=== PATIENT | female | born 1975 | race Caucasian/White ===

== ENCOUNTER → 2020-09-01 09:14 | Outpatient (BNVA) | payer SELFPAY | PROVIDERS: Family Provider Nurse Practitioner Family; PCP Nurse Practitioner Family; Visit Provider Nurse Practitioner Family | DX: R11.2 Nausea with vomiting, unspecified (principal); N91.2 Amenorrhea, unspecified; R10.811 Right upper quadrant abdominal tenderness; N64.4 Mastodynia | CPT/HCPCS: 81000; 81025 ==